=== PATIENT | male | born 1970 | race Caucasian/White ===

== ENCOUNTER → 2018-10-30 | Outpatient (CLI) | payer OTHER | END | disposition home or self-care (01) | LOC: LAB SHORT 10:27 → LAB EV 10:27 | DX: J06.9 Acute upper respiratory infection, unspecified (principal) | CPT/HCPCS: 87070 ==

== ENCOUNTER 2019-08-08 09:33 | Emergency (ER) | payer OTHER ==
[~2019-08-08] VITALS: Ht 195.6 cm; Wt 149.7 kg
[2019-08-08] MEDS ORDERED: LEVSOD75 PO (09:59)
== END 2019-08-08 12:32 | disposition left against medical advice (07) ==
LOC: ER 09:33
DX: Z53.21 Procedure and treatment not carried out due to patient leaving prior to being seen by health care provider (principal); E03.9 Hypothyroidism, unspecified; Z79.899 Other long term (current) drug therapy; Z87.891 Personal history of nicotine dependence
CPT/HCPCS: 71046; 87081; 87430